=== PATIENT | female | born 1960 | race Caucasian/White ===

== ENCOUNTER 2019-12-03 15:55 | Emergency (ER) | payer BC ==
[~2019-12-03] VITALS: Ht 157.5 cm; Wt 65.8 kg
[2019-12-03 17:23] VITALS: BP_SYST 142
== END 2019-12-03 20:50 | disposition left against medical advice (07) ==
LOC: SED 15:55
DX: M54.6 Pain in thoracic spine (principal); Z53.21 Procedure and treatment not carried out due to patient leaving prior to being seen by health care provider